=== PATIENT | female | born 1980 | race Caucasian/White ===

== ENCOUNTER → 2018-03-16 | Outpatient (CLI) | payer OTHER ==
[~2018-03-16] MED LIST: IOHEXOL 180 MG/ML 10 ML VIAL.; LIDOCAINE 1% PF 2 ML VIAL.; methylPREDNISolone ACETATE 40 MG/ML VIAL.; methylPREDNISolone ACETATE 80 MG/ML VIAL.
== END | disposition home or self-care (01) ==
LOC: PNCL 09:02
DX: M51.16 Intervertebral disc disorders with radiculopathy, lumbar region (principal); M19.90 Unspecified osteoarthritis, unspecified site; F17.210 Nicotine dependence, cigarettes, uncomplicated; Z98.1 Arthrodesis status; Z90.710 Acquired absence of both cervix and uterus; Z98.890 Other specified postprocedural states; Z79.899 Other long term (current) drug therapy; Z88.0 Allergy status to penicillin; Z88.8 Allergy status to other drugs, medicaments and biological substances; Z72.89 Other problems related to lifestyle; Z88.5 Allergy status to narcotic agent; E66.9 Obesity, unspecified
CPT/HCPCS: 62323; J1030; J1040; Q9965

== ENCOUNTER → 2018-04-11 | Outpatient (CLI) | payer OTHER | END | disposition home or self-care (01) | LOC: PNCL 14:01 | DX: M51.16 Intervertebral disc disorders with radiculopathy, lumbar region (principal); Z79.899 Other long term (current) drug therapy; Z90.710 Acquired absence of both cervix and uterus | CPT/HCPCS: 99212 ==

== ENCOUNTER → 2018-06-07 | Outpatient (CLI) | payer OTHER ==
[2016-04-01 20:38] VITALS: BP 95/52
[~2018-06-07] MED LIST changes: +ACET325T9 PO; +CYCL10TA2 PO; +HYDR-971 PO; +IBUP-1027 PO; -IOHEXOL 180 MG/ML 10 ML VIAL.; -LIDOCAINE 1% PF 2 ML VIAL.; +NAPR-683 PO; +TURM538C PO; -methylPREDNISolone ACETATE 40 MG/ML VIAL.; -methylPREDNISolone ACETATE 80 MG/ML VIAL.
--- NOTE | 2018-06-07 15:28 | KCIC ---
EXAM: Chest, 2 views. HISTORY: Bronchitis. COMPARISON: None. FINDINGS: 2 views the chest are obtained. There is no infiltrate, pleural effusion or pneumothorax. The heart is normal in size. There is a tiny suspected partially calcified granuloma overlying the right upper lobe. IMPRESSION: No acute pulmonary finding. Electronically signed by: Shelley Muller MD (06/07/2018 3:24 PM) [place] [id number]
== END | disposition home or self-care (01) ==
LOC: KCIC 12:08
PROVIDERS: ATTEND Family Medicine
DX: J20.9 Acute bronchitis, unspecified (principal)
CPT/HCPCS: 71046

== ENCOUNTER 2021-04-19 20:12 | Emergency (ER) | payer MEDICAID, OTHER ==
[~2021-04-19] VITALS: Ht 172.7 cm; Wt 150.0 kg
[~2021-04-19 20:12] MED LIST changes: +HYDR-3164 PO; -HYDR-971 PO
--- NOTE | 2021-04-20 00:28 | ED.ADGEN ---
Past Medical History Past Medical History: Other Additional Past Medical Histor: back problems Past Surgical History: , Hysterectomy Additional Past Surgical Histo: discectomy T12 Smoking Status: Current Every Day Smoker Alcohol Use: Rarely Drug Use: None General Adult HPI: HPI: Patient is a 40 year old female coming in for a burning rash to her right upper arm. Patient states that she was stung by 3 insects that appear to be hornets or wasps. Patient states she has a history of anaphylactic reactions the following day after similar stings. States she otherwise been well. Took some Benadryl and iced the area prior to arrival. Review of Systems: Review of Systems: All other systems within normal limits except for as noted in the HPI Current Medications: Current Medications Medications (Trade) Dose Ordered Sig/Justice Start Time Stop Time Status Last Admin Dose Admin Methylprednisolone Sodium Succinate (SOLU-Medrol 125MG VIAL) 125 mg 1X ONCE 04/20/21 01:00 04/20/21 01:01 Allergies: Allergies: Allergies Coded Allergies Type Severity Reaction Last Updated Verified Penicillins Allergy Intermediate 04/01/16 Yes acetaminophen Allergy Intermediate 03/16/18 Yes morphine Allergy Intermediate 04/01/16 Yes propoxyphene Allergy Intermediate 03/16/18 Yes Uncoded Allergies Type Severity Reaction Last Updated Verified presvitives Allergy Intermediate 03/16/18 Physical Exam: PE: Constitutional: Well developed, well nourished, no acute distress, non-toxic appearance. [] HENT: Normocephalic, atraumatic, bilateral external ears normal, nose normal. [] Eyes: PERRLA, conjunctiva normal, no discharge. [] Neck: No rigidity, supple, no stridor. [] Cardiovascular: Regular rate and rhythm, brisk cap refill [] Lungs & Thorax: Non labored symmetric respirations, no tachypnea or respiratory distress [] Abdomen: Soft, nondistended. Skin: Warm, dry, blanching erythema of her outer upper right arm, few punctate areas consistent with stings Back: Unremarkable Extremities: No deformities, range of motion grossly intact, no lower extremity edema [] Neurologic: Alert and oriented X 3, no focal deficits noted. [] Psychologic: Affect normal, judgement normal, mood normal. [] EKG: EKG: [] Heart Score: C/O Chest Pain: No Risk Factors: Risk Factors: DM, Current or recent (<one month) smoker, HTN, HLP, family history of CAD, obesity. Risk Scores: Score 0 - 3: 2.5% MACE over next 6 weeks - Discharge Home Score 4 - 6: 20.3% MACE over next 6 weeks - Admit for Clinical Observation Score 7 - 10: 72.7% MACE over next 6 weeks - Early Invasive Strategies Radiology/Procedures: Radiology/Procedures: [] Course & Med Decision Making: Course & Med Decision Making Pertinent Labs and Imaging studies reviewed. (See chart for details) [] Dragon Disclaimer: Dragon Disclaimer: This electronic medical record was generated, in whole or in part, using a voice recognition dictation system. Departure Departure Impression: Primary Impression: Sting from hornet, wasp, or bee Disposition: 01 HOME / SELF CARE / HOMELESS Condition: STABLE Referrals: NO PCP (PCP) Scripts Epinephrine (EPIPEN 2-TAYE) 0.3 Mg/0.3 Ml Auto.injct 1 SYR IM ONCE PRN for ANAPHYLAXIS for 1 Day, #1 PACKET 0 Refills Prov: FELICITA LANCE MD 04/20/21 Prednisone (PREDNISONE) 50 Mg Tablet 1 TAB PO DAILY for steroid for 5 Days, #5 TAB Prov: FELICITA LANCE MD 04/20/21 Famotidine (FAMOTIDINE) 40 Mg Tablet 40 MG PO HS for antacid for 14 Days, #14 TAB Prov: FELICITA LANCE MD 04/20/21 FELICITA LANCE MD Apr 20, 2021 00:27
[2021-04-20] MEDS ORDERED: PRED50TA PO (00:44)
[2021-04-20] MEDS ORDERED: FAMO40TA4 PO (00:44)
[2021-04-20] MEDS ORDERED: EPIPEN 2-P0.3 MG/0.3 IM (00:44)
[2021-04-20 00:53] VITALS: BP 130/77
[2021-04-20] MEDS ORDERED: methylPREDNISolone SOD SUCC PF 125 MG/2 ML VIAL. IM ONE (01:00)
== END 2021-04-20 00:53 | disposition home or self-care (01) ==
LOC: ER 20:12
DX: T65.891A Toxic effect of other specified substances, accidental (unintentional), initial encounter (principal); F17.200 Nicotine dependence, unspecified, uncomplicated; Z88.0 Allergy status to penicillin; Z88.5 Allergy status to narcotic agent; Z88.6 Allergy status to analgesic agent; Z88.8 Allergy status to other drugs, medicaments and biological substances; Y92.89 Other specified places as the place of occurrence of the external cause
CPT/HCPCS: 96372; 99283; J2930